=== PATIENT | female | born 1990 | race Caucasian/White ===

== ENCOUNTER → 2016-09-01 | Outpatient (CLI) | payer BC ==
--- NOTE | ~2016-09-01 | US6 ---
[facility] A Service of [facility] & [facility] RADIOLOGY TEXT RESULTS PATIENT: LORENZO HENRIQUEZ LOCATION: [facility] : [birth year] UNIT #: [id number] AGE: [address]: Myrtle Bustillo MD SEX: F ORDER DR: [id number] [facility] [address] [place], [place] [address] [id number] O MR#: [id number] Acc #: [id number] NAME: LORENZO HENRIQUEZ : 1990 SEX: F STUDY DATE/TIME: 09/01/2016 13:17 UNIT: [facility]US ROOM: STUDY DESCRIPTION: US Abdominal Limited Attending Physician: Myrtle Bustillo M.D. Referring Physician: Myrtle Bustillo M.D. Ordering Physician: Myrtle Bustillo M.D. Primary Care Physician: Myrtle Bustillo M.D. MEDICAL IMAGING REPORT This report is preliminary unless electronic signature is present EXAM Right upper quadrant ultrasound, 09/01/2016. HISTORY Right upper quadrant abdominal pain after eating for 3 days. FINDINGS The liver is homogeneous in echotexture demonstrates no cystic or solid mass lesions. The intra and extrahepatic bile ducts are not dilated. The gallbladder contains multiple shadowing gallstones but there is no evidence of gallbladder wall thickening or pericholecystic fluid. The common duct measures 5 mm. The pancreas and right kidney are normal. IMPRESSION Cholelithiasis. Dictated by... Adolph Foote M.D. THIS IS AN ELECTRONICALLY VERIFIED REPORT Adolph Foote M.D. at 09/02/2016 9:34 AM YULIANA/aryan TD: 09/01/2016 15:50 JOB #: [id number] MEDICAL IMAGING REPORT Page 1 of 1 COPY
== END | disposition home or self-care (01) ==
LOC: CGUS 12:55
DX: R10.10 Upper abdominal pain, unspecified (principal); K80.20 Calculus of gallbladder without cholecystitis without obstruction
CPT/HCPCS: 76705; J0153